=== PATIENT | female | born 1955 | race Caucasian/White ===

== ENCOUNTER → 2016-08-27 | Outpatient (CLI) | payer BC ==
[~2016-08-27] MED LIST: ASPI81TA28 PO; EFF75 PO; GABA-113 PO; GADOXETATE DISODIUM (NON-WT BASED PROCEDURE) IV PRN; HYG/25 PO; LPT/40 PO; ONDA8TAB6 PO; PROC1TAB5 PO; TRAM-10 PO
--- NOTE | 2016-08-27 19:04 | DIAGNOSTIC IMAGING REPORT ---
MRI OF THE ABDOMEN COMBO CLINICAL HISTORY: Abnormal PET scan. There is normal.. COMPARISON STUDY: None. A complete outside PET/CT CT scan, was not provided, nor was a right report of that examination provided. TECHNIQUE: MRI of the abdomen is performed transverse T1 and T2-weighted sequences in the axial and coronal planes. Contrast enhanced sequences were acquired following the IV administration of 10 cc view of the chest. FINDINGS: Lower chest: No pleural effusion is identified. The heart is normal in size. Liver: The liver is normal in size, contour, and signal intensity. No intrahepatic biliary ductal dilatation is seen. The hepatic veins and portal veins are patent. Gallbladder: Unremarkable. Spleen: Normal in size and signal intensity. Pancreas: Unremarkable. Adrenal glands: Unremarkable. Kidneys: The kidneys are normal in size and without hydronephrosis. The kidneys enhance and excrete symmetrically. Bowel: Visualized portions of the small bowel and colon show no evidence of obstruction. Peritoneum: There is no abdominal ascites. Lymphadenopathy: None. Skeletal structures: Visualized skeletal structures times are normal marrow signal intensity. IMPRESSION: Normal MRI of the abdomen. Normal MRI of the liver Electronically signed by: Bulmaro Mcmahon M.D. 08/27/2016 7:03 PM Dictated Date/Time: 08/27/2016 7:01 PM
== END | disposition home or self-care (01) ==
LOC: C.MRI 17:24
PROVIDERS: ATTEND Internal Medicine Hematology & Oncology
DX: R94.5 Abnormal results of liver function studies (principal)

== ENCOUNTER → 2017-06-18 | Outpatient (CLI) | payer BC ==
[~2017-06-18] MED LIST changes: +ANAS1TAB19 PO; -GADOXETATE DISODIUM (NON-WT BASED PROCEDURE) IV PRN; -ONDA8TAB6 PO; -PROC1TAB5 PO; -TRAM-10 PO
[2017-06-18 15:13] VITALS: BP 160/92; PULSE 86; TEMP 36.8; O2SAT 97
--- NOTE | 2017-06-18 16:57 | Radiation Oncology Follow-Up ---
Radiation Oncology Follow-Up Date of Visit Jun 18, 2017. 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 Completed 02/14/2017 Status post completion of radiation therapy 05/14/2017 she received 6640 cGy. Last Edited By: Indira Arellano on May 20, 2017 13:15 History of Present Illness Ms. Taty Quiros is without a family history of breast cancer. She followed with screening mammograms. On 07/31/2016 she underwent a lateral screening mammograms. The left breast showed no significant abnormalities. The right breast however showed a high density irregular mass with spiculated margins present measuring 2.2 x 1.3 x 2.2 cm at the 1:00 middle depth position. Ultrasound confirmed a solid mass which was hypoechoic spiculated margins with posterior acoustic shadowing and irregular shape. Patient subsequently underwent a right breast ultrasound core biopsy on 08/07/2016. This confirmed an invasive carcinoma, NOS, intermediate grade. The lesion was ER positive MA weakly positive and HER-2/urban equivocal. The tissue was confirmed negative by fish analysis. [id number]. Patient was seen by Dr. Agarwal ordered bilateral breast MRIs. These were performed on 08/21/2016. The left breast was again unremarkable. The right breast at the 1:00 middle depth and oval mass was identified measuring 2.5 x 1.5 x 2.1 cm with spiculated margins. This contained a biopsy marker from her previous biopsy confirming the site of the original diagnosis. No lymphadenopathy, skin thickening or nipple retraction was identified. At the anterior depth of the 1 o'clock position was a 4 mm subcutaneous nodule decreased T1 signal, increased T2 signal and mild rim enhancement with appearance suggested a mildly inflamed cyst. On August 22 patient underwent additional views and ultrasound of the right breast is again identified the known spiculated 12:00 mass middle to posterior depth containing the biopsy marker. Targeted second look ultrasound of the questioned anterior depth nodule demonstrated a corresponding anechoic avascular 4 mm simple cyst. Patient subsequently underwent a PET CT scan for staging purposes on 08/22/2016. In the chest a 2.6 x 1.4 x 2.1 cm spiculated mass was noted in the upper inner quadrant of the right breast with elevated metabolic activity and an SUV max of 9.7. No lymphadenopathy is identified in the chest. Showing no evidence of metastatic disease. Dr. Agarwal discussed treatment options with the patient and she ultimately agreed to proceed with a breast conserving therapy consisting of a right partial mastectomy and sentinel node biopsy. This procedure was performed on 09/06/2016. The partial mastectomy specimen identified an invasive carcinoma, NOS, grade 2 measuring 2.5 cm in greatest dimension. 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 There was no extensive intraductal component and the estimated size of the DCIS was at least 3 mm. The margins of the invasive carcinoma were clear with the closest margin 3 mm from the medial margin. The margins from DCIS were negative with the closest margin of 1 cm from the medial margin. One sentinel lymph node was identified and contained a macro metastasis. Extranodal extension was present. The final AJCC pathologic staging was therefore pT2 pN1, ER positive, MA positive and HER-2/urban negative saw the patient to evaluate the role of systemic therapy. Given the size of the lesion and the lymph node status she recommended systemic chemotherapy to consist of dose dense Adriamycin and Cytoxan followed by 12 weeks of Taxol. A port was placed on September 26 and she is scheduled to start her systemic chemotherapy. She has now completed her systemic chemotherapy. The treatment was finished on 02/14/2017. As planned she completed 4 cycles of Adriamycin and Cytoxan. She then had Taxol weekly. This was for 12 weeks. She had minimal nausea and no vomiting. She did have generalized body aches. She had no difficulty with nail changes. She is looking forward to her hair growing back. She is here today discuss radiation therapy. She underwent a CT simulation and completed conventional radiation therapy. Treatment was given to the right breast, supraclavicular area, And axilla. This was completed 05/14/2017. She received 6640 cGy. Interim History She has been doing well over the past month. A skin irritation that occurred towards the end of treatment has resolved. She denies any pain or tenderness. She has noticed no changes of the axilla. She has had no swelling of her arm. She has seen Dr. Agarwal and Dr. Wise in follow-up she had a recheck mammogram May 30, 2017. This showed posttreatment changes on the mammogram. Complex periareolar cyst on ultrasound. Recommend mammogram and sonogram in 6 months. This was given a BI-RADS Category 2. Chief complaint of general joint pain. Dr. Wise ordered a bone scan and that was negative for metastatic disease. She is scheduled for follow-up bilateral mammography in July 2017. Allergies Coded Allergies: No Known Allergies (Unverified , 12/20/16) Home Medications Scheduled Anastrozole (Arimidex), 1 TAB PO DAILY Aspirin (Aspirin Ec), 81 MG PO DAILY Atorvastatin (Lipitor), 40 MG PO DAILY Chlorthalidone (Hygroton), 1 TAB PO DAILY Gabapentin (Neurontin), 300 MG PO QPM Venlafaxine Hcl (Effexor), 2 TAB PO DAILY Review of Systems Gastrointestinal: Symptoms: WNL Oral: Symptoms: No Problems Respiratory: Symptoms: WNL Urinary: Symptoms: WNL Skin: Symptoms: No Problems Breast: Right Upper Arm Measurement: 25.9 Right Mid Arm Measurement: 22.3 Right Wrist Measurement: 15.7 Left Upper Arm Measurement: 25.9 Left Mid Arm Measurement: 23.1 Left Wrist Measurement: 15.7 Arm Dominence: Right Physical Exam Vital Signs Date Time Temp Pulse Resp B/P (MAP) Pulse Ox O2 Delivery O2 Flow Rate FiO2 06/18/17 15:13 36.8 86 16 160/92 97 Fatigue: None General Appearance: no apparent distress Eyes: normal inspection, EOMI ENT: normal ENT inspection, hearing grossly normal Neck: no adenopathy, thyroid normal Respiratory/Chest: lungs clear, no respiratory distress, no accessory muscle use Breast: Breast examination reveals resolving hyperpigmentation on the right. There is dryness of the skin. There are no masses or tenderness and no axillary adenopathy. She has no skin retractions or nipple changes. Using the Harward score cosmesis she currently has a fair outcome. Left breast showed no masses or tenderness and no axillary adenopathy. Fibrocystic changes. Cardiovascular: regular rate, rhythm, no gallop, no murmur Abdomen: non tender, soft Extremities: no pedal edema Neurologic/Psychiatric: no motor/sensory deficits, alert, normal mood/affect Skin: warm/dry Lymphatic: no adenopathy Pain Management Patient Reports Pain: No Pain Management Plan She denies pain therefore requires no pain management. Laboratory Laboratory Results: not applicable Pathology Pathology Results: not applicable Imaging Imaging Studies: were reviewed Imaging Comments Reviewed in the interim history. Assessment & Plan Plan: Patient was also seen and examined by Dr. Canales. She was instructed to continue Aquaphor to the area of dry skin on the breast. Today we discussed smoke cessation. She was given a card for the 1 800 quit line. She was also educated that we have a smoke cessation program here at the hospital. I have asked her to call if she would like to join the program. We discussed her weight loss. She had been approximately 160 pounds prior to surgery and chemotherapy. She had significant weight loss throughout the chemotherapy time. She has now completed all treatment and she is at 142 pounds. She continues to lose weight since the end of radiation therapy. I have asked her to monitor her weight and if she continues to lose weight she did have a sooner appointment with Dr. Wise. Today we completed the cancer survivorship care plan. A copy of the document was given to the patient. We asked her to return to our office in 6 months. Assessment & Plan (Attending) I agree with note created by Indira Arellano PA-C. I reviewed the patient's chart and information with her. I have examined and evaluated the patient. I reviewed relevant clinical information and answered the patient's and/or family' s questions. COMB CAPPER Total Time In Follow-Up I spent 20 minutes speaking to the patient in performing examination. I spent 20 minutes reviewing information, preparing the survivorship document, discussing smoking cessation, and completing this note. Total Time (Attending) In Follow-Up I spent 15 minutes examining and counseling the patient. COMB CAPPER Copy To Smitha Agarwal MD; Damian Wise MD; Meli Montgomery M.D. Problem Qualifiers (1) Breast cancer: Breast location: lower inner quadrant of breast Estrogen receptor status: positive Patient sex: female Laterality: right Qualified Codes: C50.311 - Malignant neoplasm of lower-inner quadrant of right female breast; Z17.0 - Estrogen receptor positive status [ER+]
== END | disposition home or self-care (01) ==
LOC: C.ONC 15:00
PROVIDERS: ATTEND Physician Assistant Medical
DX: Z08 Encounter for follow-up examination after completed treatment for malignant neoplasm (principal); Z92.3 Personal history of irradiation; Z85.3 Personal history of malignant neoplasm of breast